=== PATIENT | female | born 1930 | race Hispanic/Latino ===

== ENCOUNTER 2018-06-27 14:42 | Emergency (ER) | payer MEDICARE, MEDICAID ==
[2018-06-27 14:42] VITALS: BMI 24.5
[2018-06-27 15:17] VITALS: BP 180/80; PULSE 100; RESP 18; TEMP 98; O2SAT 99
[2018-06-27] MEDS ORDERED: Lidocaine Hydrochloride 5 ML INJ ONE (15:36)
--- NOTE | 2018-06-27 15:40 | C.PDOC ---
History Of Present Illness 87 y/o female, with history of ESRD, hypertension, and hyperthyroidism, comes in to ED stating that she was on her way to dialysis when she banged her foot on the door of the vehicle and sustained a laceration on her left leg. Patient went to complete dialysis and decided to come here to ED to be evaluated. Patient has no other physical complaints. Time Seen by Provider: 06/27/18 15:26 Chief Complaint (Nursing): Abnormal Skin Integrity History Per: Patient History/Exam Limitations: no limitations Onset/Duration Of Symptoms: Hrs Current Symptoms Are (Timing): Still Present Past Medical History Reviewed: Historical Data, Nursing Documentation, Vital Signs Vital Signs: Last Vital Signs Temp 98.0 F 06/27/18 15:09 Pulse 100 H 06/27/18 15:09 Resp 18 06/27/18 15:09 BP 180/80 H 06/27/18 15:09 Pulse Ox 99 06/27/18 15:09 - Medical History PMH: HTN, Hyperthyroidism, End Stage Renal Disease - [facility] Procedures DIALYSIS ARTERIOVENOSTOM (03/12/13) HECTOR ASAEL DIALYSIS SHUNT (05/21/13) Family History: States: No Known Family Hx - Social History Hx Tobacco Use: No Hx Alcohol Use: No Hx Substance Use: No - Immunization History Hx Tetanus Toxoid Vaccination: No Hx Influenza Vaccination: No Hx Pneumococcal Vaccination: No Review Of Systems Except As Marked, All Systems Reviewed And Found Negative. Skin: Positive for: Other (Laceration on L leg) Physical Exam - Physical Exam Appears: Non-toxic, No Acute Distress Skin: Warm, Dry Head: Atraumatic, Normacephalic Eye(s): bilateral: Normal Inspection Oral Mucosa: Moist Neck: Supple Chest: Symmetrical Cardiovascular: Rhythm Regular, No Murmur Respiratory: Normal Breath Sounds, No Rales, No Rhonchi, No Wheezing Extremity: Other (AV fistula on L arm) Extremity: Left: Other (10cm curved laceration on left leg, no active bleeding) Neurological/Psych: Oriented x3, Normal Speech, Normal Motor, Normal Sensation ED Course And Treatment O2 Sat by Pulse Oximetry: 99 (RA) Pulse Ox Interpretation: Normal Procedure: Wound Repair - Time Performed Time Performed: 16:51 - Time Out Time Out: Side verified, Patient ID confirmed, Sterile procedures obs. - Procedure Procedure: Wound Repair: Laceration proximated and sutured - Performed by Performed by: Attending Physician - Indications Indication(s):: Laceration - Location Location:: Left, Leg Shape:: Other (Curve) Dimensions Length cm: 10 Dimensions width cm: 0.5 Depth:: Epidermis - Anesthetic Technique Anesthetic Technique: Topical Local/Regional Anesthetic:: Lidocaine 1% - Debris Debris:: None - Irrigated Irrigated with ml of normal saline: Normal saline, 10 ml - Complexity Complexity:: Simple (one layer) - Wound repair method Sutures:: # (14), Size (3 and 4), Type (Nylon), Technique (Simple, interrupted) - Patient tolerated procedure Patient Tolerated Procedure:: Well Disposition - Disposition Referrals: [facility] [Outside] Disposition: HOME/ ROUTINE Disposition Time: 17:25 Condition: IMPROVED Additional Instructions: Please follow up with the ed or your PCP for wound check in 48 hours and take bactrim as directed. Prescriptions: Acetaminophen [Tylenol] 650 mg PO Q4 #20 capsule Sulfamethoxazole/Trimethoprim [Bactrim Ds Tablet] 1 each PO Q12 #14 tablet Instructions: Wound Care (DC) Forms: [employer] (Greenlandic) - Clinical Impression Clinical Impression: Leg laceration - Scribe Statement The provider has reviewed the documentation as recorded by the Barb Mccall Provider Attestation: All medical record entries made by the Maryibkaylen were at my direction and personally dictated by me. I have reviewed the chart and agree that the record accurately reflects my personal performance of the history, physical exam, medical decision making, and the department course for this patient. I have also personally directed, reviewed, and agree with the discharge instructions and disposition.
[2018-06-27] MEDS ORDERED: Lidocaine Hydrochloride 10 ML INJ ONE (15:56)
[2018-06-27] MEDS ORDERED: Bacitracin 500 Units/gm Oint Foilpak UD ONE (16:45)
[2018-06-27] MEDS ORDERED: Tmp-Smz 800 mg-160 mg DS Tab PO ONE (16:59)
[2018-06-27] MEDS ORDERED: Tetanus/Diphtheria Toxoids 0.5 ml Syringe IM ONE (17:00)
[2018-06-27] MEDS ORDERED: Tmp-Smz 800 mg-160 mg DS Tab ONE (17:20)
[2018-06-27] MEDS ORDERED: Tdap Vaccine 0.5 ml Vial (10-64 yrs) IM ONE (17:21)
== END 2018-06-27 17:24 | disposition home or self-care (01) ==
LOC: C.ER 14:42
DX: S81.812A Laceration without foreign body, left lower leg, initial encounter (principal); W22.8XXA Striking against or struck by other objects, initial encounter; I12.0 Hypertensive chronic kidney disease with stage 5 chronic kidney disease or end stage renal disease; N18.6 End stage renal disease; Z99.2 Dependence on renal dialysis; Z23 Encounter for immunization

== ENCOUNTER 2018-06-29 14:33 | Emergency (ER) | payer MEDICARE, MEDICAID ==
[2018-06-29 14:40] VITALS: BMI 24.7
[2018-06-29 14:45] VITALS: BP 173/83; PULSE 92; RESP 17; TEMP 97.5; O2SAT 100
--- NOTE | 2018-06-29 14:49 | C.PDOC ---
History Of Present Illness 87 y/o female pt presents to the ER for wound check. Pt was here x2 days ago for a laceration repair of her right lower anterior leg. Pt denies fever, chills, nausea, vomiting, change in sensation and weakness. Patient is compliant with antibiotics prescription that was given. Time Seen by Provider: 06/29/18 14:47 Chief Complaint (Nursing): Wound Check History Per: Patient History/Exam Limitations: no limitations Onset/Duration Of Symptoms: Days Ago (x2) Current Symptoms Are (Timing): Still Present Location Of Injury: Right: Leg (low anterior) Past Medical History Reviewed: Historical Data, Nursing Documentation, Vital Signs Vital Signs: Last Vital Signs Temp 97.5 F L 06/29/18 14:40 Pulse 92 H 06/29/18 14:40 Resp 17 06/29/18 14:40 BP 173/83 H 06/29/18 14:40 Pulse Ox 100 06/29/18 14:40 - Medical History PMH: HTN, Hyperthyroidism, End Stage Renal Disease, Chronic Kidney Disease - [facility] Procedures DIALYSIS ARTERIOVENOSTOM (03/12/13) HECTOR ASAEL DIALYSIS SHUNT (05/21/13) Family History: States: Unknown Family Hx - Social History Hx Tobacco Use: No Hx Alcohol Use: No Hx Substance Use: No - Immunization History Hx Tetanus Toxoid Vaccination: Yes (06/27/2018) Hx Influenza Vaccination: No (ALLERGY) Hx Pneumococcal Vaccination: No Review Of Systems Except As Marked, All Systems Reviewed And Found Negative. Constitutional: Positive for: Other (wound check of right lower anterior leg ). Negative for: Fever, Chills Gastrointestinal: Negative for: Nausea, Vomiting Neurological: Negative for: Weakness, Other (changes in sensation ) Physical Exam - Physical Exam Appears: Non-toxic, No Acute Distress Skin: Warm, Dry Head: Normacephalic Eye(s): bilateral: Normal Inspection, EOMI Extremity: Normal ROM, No Tenderness, No Pedal Edema, No Calf Tenderness, No Deformity, No Swelling, Other (healed wound, slight oozing of blood on right lower leg ) Pulses: Right Dorsalis Pedis: Normal Neurological/Psych: Oriented x3, Normal Speech, Normal Cognition, Normal Motor, Normal Sensation ED Course And Treatment O2 Sat by Pulse Oximetry: 100 (RA) Pulse Ox Interpretation: Normal Progress Note: Plans: Surgery seal was placed on laceration repair. Reassess: Patient is resting comfortably. Patient is instructed to f/u and have her suture removed in 12 days. Disposition - Disposition Referrals: Amrit Nielson MD [Staff Provider] - Disposition: HOME/ ROUTINE Disposition Time: 14:55 Condition: STABLE Additional Instructions: Follow up with PMD within 1-2 days. Return to ED if feel worse. Suture removal in 12 days. 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 - Scribe Statement The provider has reviewed the documentation as recorded by the Barb Quiñonez Do All medical record entries made by the Scribe were at my direction and personally dictated by me. I have reviewed the chart and agree that the record accurately reflects my personal performance of the history, physical exam, medical decision making, and the department course for this patient. I have also personally directed, reviewed, and agree with the discharge instructions and d isposition.
== END 2018-06-29 15:09 | disposition home or self-care (01) ==
LOC: C.ER 14:33
DX: S81.812D Laceration without foreign body, left lower leg, subsequent encounter (principal); W22.8XXD Striking against or struck by other objects, subsequent encounter

== ENCOUNTER 2018-11-06 09:31 | Inpatient (IN) | payer MEDICARE, MEDICAID ==
[2018-11-06 09:31] VITALS: BMI 24.7
--- NOTE | 2018-11-06 09:52 | C.PDOC ---
Time Seen by Provider: 11/06/18 09:43 Chief Complaint (Nursing): Dizziness/Lightheaded Past Medical History Vital Signs: Last Vital Signs Temp 97.4 F L 11/06/18 09:45 Pulse 95 H 11/06/18 09:45 Resp 17 11/06/18 09:45 BP 165/82 H 11/06/18 09:45 Pulse Ox 99 11/06/18 09:45 Primary Care Provider: Amrit Nielson - Medical History PMH: HTN, Hyperthyroidism, End Stage Renal Disease, Chronic Kidney Disease - [facility] Procedures DIALYSIS ARTERIOVENOSTOM (03/12/13) HECTOR ASAEL DIALYSIS SHUNT (05/21/13) Family History: States: Unknown Family Hx - Social History Hx Tobacco Use: No Hx Alcohol Use: No Hx Substance Use: No - Immunization History Hx Tetanus Toxoid Vaccination: Yes (06/27/2018) Hx Influenza Vaccination: No (ALLERGY) Hx Pneumococcal Vaccination: Yes ED Course And Treatment O2 Sat by Pulse Oximetry: 99 Disposition - Disposition
--- NOTE | 2018-11-06 10:09 | C.PDOC ---
History Of Present Illness 88 year old female presents to ED s/p fall that occurred at 1630 yesterday. On 11/05 patient complained of back pain. Patient states she was sitting on the edge of the bed removing clothing and states "I just fell over" and landed back on the floor. Patient states that she was unable to get herself off the floor. Patient states "I was yelling for help" and her neighbor and super both heard her and called the EMS. Patient complaints of left upper and lower back pain from "laying on the floor." She denies taking any blood thinners. 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 Pimentel. Patient is status post hemodyalisis 11/05. Patient denies chest pain, headache, nausea, vomiting, abdominal pain, or extremity pain, head injury, or loss of consciousness. SP FALL 1630 11/05 CO BACK PAIN. PS SITTING ON EDGE OF BED REMOVING CLOTHING "AND I JUST FELL OVER" LANDED ON BACK ON FLOOR. DENIES HEAD INJURY, LOC. PS UNABLE TO GET SELF OFF OF FLOOR, "I WAS YELLING FOR HELP" NEIGHBOR AND SUPER HEARD PT AND CALLED EMS. CO L UPPER AND LOWER BACK PAIN "FROM LAYING ON THE FLOOR". SP ROUTINE HD 11/05, DENIES CP, [place], [place], ABD PAIN OR EXT PAIN. WALKS W CANE. DENIES BLOOD THINNER USE. EXAM NONTOXIC NAD HEENT ATRAUM NECK SUPPLE NONTEND CHEST WALL ATRAUM CV RRR ABD SOFT NT ND NO R/G ATRAUM BACK SEVERE KYPHOSIS, NO FOCAL SPINAL TEND OR DEFORM. +DIFFUSE TEND L UPPER BACK/LOWER BACK. NO SWELL SKIN +NONBLANCHING ERYTHEMA L UPPER BACK, INTACT. NO BRUISING. NEURO NO FOCAL DEF AO3 EXT AROM WO DIFF ATRAUM NONTEND REMAINDER NEG NEPHRO DR CONLEY PMD DR PIMENTEL - [facility] Time Seen by Provider: 11/06/18 09:43 History Per: Patient History/Exam Limitations: no limitations Onset/Duration Of Symptoms: Days (1) - Fall Fall:Prior To Injury: Lost Balance Past Medical History Reviewed: Historical Data, Nursing Documentation, Vital Signs Vital Signs: Last Vital Signs Temp 97.4 F L 11/06/18 09:45 Pulse 95 H 11/06/18 09:45 Resp 17 05/07/19 09:45 BP 165/82 H 11/06/18 09:45 Pulse Ox 99 11/06/18 09:52 Primary Care Provider: Amrit Pimentel - Medical History PMH: HTN, Hyperthyroidism, End Stage Renal Disease, Chronic Kidney Disease Surgical History: No Surg Hx - [facility] Procedures DIALYSIS ARTERIOVENOSTOM (03/12/13) HECTOR ASAEL DIALYSIS SHUNT (05/21/13) Family History: States: Unknown Family Hx - Social History Hx Tobacco Use: No Hx Alcohol Use: No Hx Substance Use: No - Immunization History Hx Tetanus Toxoid Vaccination: Yes (06/27/2018) Hx Influenza Vaccination: No (ALLERGY) Hx Pneumococcal Vaccination: Yes Review Of Systems Except As Marked, All Systems Reviewed And Found Negative. Musculoskeletal: Positive for: Back Pain Physical Exam - Physical Exam Appears: Non-toxic, No Acute Distress Skin: Normal Color, Warm, Dry, No Ecchymosis, Other (+ non-blanching erythema to the left upper back, intact) Head: Atraumatic, Normacephalic Eye(s): bilateral: Normal Inspection, PERRL, EOMI Neck: Normal ROM, No Midline Cervical Tenderness, No Paracervical Tenderness, Supple Chest: Symmetrical, No Deformity, No Tenderness Cardiovascular: Rhythm Regular, No Murmur Respiratory: No Accessory Muscle Use, No Rales, No Rhonchi, No Wheezing, Other (NARD) Gastrointestinal/Abdominal: Soft, No Tenderness, No Distention, No Guarding, No Rebound Back: No Vertebral Tenderness (deformity), Paraspinal Tenderness (left upper back/lower back, no swelling), Other (Severe kyphosis) Extremity: Capillary Refill (<2 seconds) Extremity: Bilateral: Atraumatic, Normal Color And Temperature, Normal ROM Pulses: Left Radial: Normal, Right Radial: Normal Neurological/Psych: Oriented x3, Normal Speech, Normal Cognition, Normal Motor, Normal Sensation ED Course And Treatment - Laboratory Results Result Diagrams: 11/06/18 10:19 11/06/18 10:19 ECG: Interpreted By Me, Viewed By Me ECG Rhythm: Sinus Rhythm Interpretation Of ECG: QTc 517. Rate From EC O2 Sat by Pulse Oximetry: 99 (in RA) Pulse Ox Interpretation: Normal - Radiology CXR: Interpreted by Me, Viewed By Me CXR Interpretation: Yes: No Acute Disease Nexus Criteria: Negative - Other Rad pelvis x-ray X-Ray: Interpreted by Me, Viewed By Me Interpretation: Normal - CT Scan/US Head CT Other Rad Studies (CT/US): Read By Radiologist CT/US Interpretation: IMPRESSION: Moderate to severe nonspecific white matter changes. Generalized atrophy. Thoracic Spine CT Other Rad Studies (CT/US): Read By Radiologist CT/US Interpretation: IMPRESSION: Prominent kyphotic deformity of the thoracic spine is appreciate without severe fracture identified. Minimal anterior wedge compression fractures may affect T1, T2 and T3 as well as T5 and these would be indeterminate in age. Consider follow-up MRI for added characterization. No significant bony central canal or neural foraminal stenosis appreciated throughout the thoracic spine. Small hiatal hernia. Distal esophageal thickening difficult to exclude. Consider upper endoscopy. Prior cholecystectomy evident. Multiple small lucencies are seen in the liver. Consider follow-up abdomen ultrasound Lumbar Spine CT Other Rad Studies (CT/US): Read By Radiologist CT/US Interpretation: IMPRESSION: No acute fracture identified. Grade 2 degenerative spondylolisthesis at L5-S1 is identified due to bilateral L5 spondylolysis with lung elongation of the central canal and both the elongation as well as moderate to severe narrowing of the bilateral neural foramina. Dextroscoliotic lumbar spinal deformity. Diffuse osteopenia suggests osteoporosis. Multilevel facet arthropathy appreciated diffusely. Progress Note: Head CT, Lumbar spine CT, Thoracic spine CT, EKG, CXR, and pelvis X-ray ordered for patient. CMP, CPK, and glucose POC ordered for patient. Discussed case with Dr. Villalta at 1145. is aware of ER findings and patient does not require emergent dialysis. Patient cleared for discharge and to continue schedule for outpatient dialysis. Progress - Re-Evaluation Re-evaluation Note: 11/06/18 12:57 SP AMBUL TRIAL W WALKER BY PT: STILL UNSTEADY. 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 WILL ADMIT 11/06/18 13:00 D/W DR Eladio HERNANDEZ C/F PMD WILL ADMIT - Data Reviewed Data Reviewed: Lab, Diagnostic imaging, EKG, Old records Disposition Counseled Patient/Family Regarding: Studies Performed, Diagnosis - Disposition Disposition: HOSPITALIZED Disposition Time: 13:00 Condition: STABLE Forms: [employer] ([place]ic) - POA Present On Arrival: Falls Or Trauma - Clinical Impression Clinical Impression: Back contusion, Difficulty walking, ESRD (end stage renal disease) on dialysis - Scribe Statement The provider has reviewed the documentation as recorded by the Scribe (Negra Hwang) All medical record entries made by the Scribe were at my direction and personally dictated by me. I have reviewed the chart and agree that the record accurately reflects my personal performance of the history, physical exam, medical decision making, and the department course for this patient. I have also personally directed, reviewed, and agree with the discharge instructions and disposition.
[2018-11-06 10:30] LABS: BASO # 0.1 K/uL (0.0-0.2); BASO % 0.7 % (0.0-2.0); LYMPH # 0.4 K/uL (1.0-4.3); LYMPH % 3.5 % (20.0-40.0); MEAN CELL VOLUME 86.2 fL (81.0-99.0); MEAN CORPUSCULAR HEMOGLOBIN 27.7 pg (27.0-31.0); MEAN CORPUSCULAR HGB CONC 32.1 g/dL (33.0-37.0); MEAN PLATELET VOLUME 8.5 fL (7.2-11.7); MONO # 0.6 K/uL (0.0-0.8); NEUT % 90.8 % (50.0-75.0); PLATELET COUNT 210 K/uL (130-400); RBC 5.77 Mil/uL (3.80-5.20); RED CELL DISTRIBUTION WIDTH 16.3 % (11.5-14.5)
[2018-11-06 10:31] LABS: WHITE BLOOD COUNT 12.1 K/uL (4.8-10.8)
[2018-11-06 10:34] LABS: ALB/GLOB RATIO 1.2 (1.0-2.1); ALBUMIN 4.6 g/dL (3.5-5.0); CALCIUM 9.7 mg/dl (8.6-10.4)
[2018-11-06 10:45] LABS: INR 1.1; PROTHROMBIN TIME 11.8 SECONDS (9.7-12.2)
--- NOTE | 2018-11-06 11:03 | RAD ---
Date of service: 11/06/2018 PROCEDURE: Radiographs of the pelvis. HISTORY: TRAUMA COMPARISON: None. TECHNIQUE: 1 view obtained. FINDINGS: BONES: Pelvic Bones: Unremarkable. Hips: Grossly unremarkable. JOINTS: Sacroiliac Joints: Unremarkable. Pubic Symphysis: Unremarkable. OTHER FINDINGS: None. IMPRESSION: Unremarkable radiographs of the pelvis.
[2018-11-06 11:06] LABS: EOSINOPHIL 1 % (0-4); LYMPHOCYTE 4 % (20-40); MONOCYTE 6 % (0-10); NEUTROPHIL 89 % (50-75); TOTAL CELLS COUNTED 100
[2018-11-06 11:07] LABS: ANISOCYTOSIS SLIGHT; PLATELET ESTIMATE NORMAL (NORMAL)
--- NOTE | 2018-11-06 11:35 | CT ---
Date of service: 11/06/2018 PROCEDURE: CT HEAD WITHOUT CONTRAST. HISTORY: TRAUMA COMPARISON: None available TECHNIQUE: Axial computed tomography images were obtained through the head/brain without intravenous contrast. Radiation dose: Total exam DLP = 928.55 mGy-cm. This CT exam was performed using one or more of the following dose reduction techniques: Automated exposure control, adjustment of the mA and/or kV according to patient size, and/or use of iterative reconstruction technique. FINDINGS: HEMORRHAGE: No intracranial hemorrhage. BRAIN: Diffuse atrophy with prominence of the ventricles and sulci noted. No mass effect or edema. Intracranial atherosclerosis. Bilateral basal ganglia calcifications. Scattered periventricular and subcortical white matter hypodensities, which are nonspecific, but often seen with chronic microvascular ischemic disease. Please note that MRI with diffusion imaging is more sensitive in the detection of acute ischemic event. VENTRICLES: No hydrocephalus. CALVARIUM: Unremarkable. PARANASAL SINUSES: Unremarkable as visualized. No significant inflammatory changes. MASTOID AIR CELLS: Unremarkable as visualized. No inflammatory changes. OTHER FINDINGS: None. IMPRESSION: Moderate to severe nonspecific white matter changes. Generalized atrophy.
--- NOTE | 2018-11-06 11:56 | CT ---
Date of service: 11/06/2018 PROCEDURE: CT Thoracic Spine without contrast HISTORY: TRAUMA COMPARISON: None available. TECHNIQUE: Axial computed tomography images were obtained of the thoracic spine without intravenous contrast. Coronal and sagittal reformatted images were created and reviewed. Radiation dose: Total exam DLP = 463.67 mGy-cm. This CT exam was performed using one or more of the following dose reduction techniques: Automated exposure control, adjustment of the mA and/or kV according to patient size, and/or use of iterative reconstruction technique. FINDINGS: VERTEBRAE: Although there is a hyper kyphotic deformity of the thoracic spine, there only minimal potential anterior wedging of the T1, T2, T3 and T5 vertebral bodies on a minimal basis. Remaining vertebral bodies are grossly normal in height. Diffuse osteopenia suggests osteoporosis. No destructive bony lesion is identified. Mild multilevel spondylosis appreciated anteriorly on a diffuse basis. No spondylolisthesis appreciated. DISCS/SPINAL CANAL/NEURAL FORAMINA: Within the limits of the CT technique, no disc herniation seen. No bony central canal or neural foraminal stenosis.. PARASPINAL SOFT TISSUES: Unremarkable. OTHER FINDINGS: There is a small hiatal hernia identified with thickening of the distal esophagus not completely excluded. Prior cholecystectomy. Multiple tiny lucencies are seen at the visualized liver. IMPRESSION: Prominent kyphotic deformity of the thoracic spine is appreciate without severe fracture identified. Minimal anterior wedge compression fractures may affect T1, T2 and T3 as well as T5 and these would be indeterminate in age. Consider follow-up MRI for added characterization. No significant bony central canal or neural foraminal stenosis appreciated throughout the thoracic spine. Small hiatal hernia. Distal esophageal thickening difficult to exclude. Consider upper endoscopy. Prior cholecystectomy evident. Multiple small lucencies are seen in the liver. Consider follow-up abdomen ultrasound
--- NOTE | 2018-11-06 12:09 | CT ---
Date of service: 11/06/2018 PROCEDURE: CT Lumbar Spine without contrast HISTORY: TRAUMA COMPARISON: None available. TECHNIQUE: Axial computed tomography images were obtained of the lumbar spine without the use of intravenous contrast. Coronal and sagittal reformatted images were created and reviewed. Radiation dose: Total exam DLP = 475.74 mGy-cm. This CT exam was performed using one or more of the following dose reduction techniques: Automated exposure control, adjustment of the mA and/or kV according to patient size, and/or use of iterative reconstruction technique. FINDINGS: VERTEBRAE: Diffuse osteopenia suggests osteoporosis. There is a dextroscoliotic lumbar spinal deformity with apparent counter clockwise rotatory component present. No definite vertebral body fracture is identified. No focal destructive bony lesion is identified. Multilevel facet joint arthropathy is identified. Bilateral spondylolysis is identified at L5 with concomitant grade 2 spondylolisthesis of L5 anterior to S1. DISCS/SPINAL CANAL/NEURAL FORAMINA: Despite multilevel facet joint arthropathy throughout the lumbar spine, the bony central canal appears widely patent diffusely, including at the spondylolisthesis L1-2: No significant central canal or neural foraminal stenosis. Mild bilateral facet arthropathy. L2-3: No significant central canal or neural foraminal stenosis. Mild bilateral facet arthropathy. L3-4: No significant central canal or neural foraminal stenosis. Mild bilateral facet arthropathy. L4-5: There is a widely patent central canal without stenosis. No neural foraminal stenosis bilaterally. Degenerative joint arthropathy appears mild. L5-S1: Despite grade 2 spondylolisthesis at this level, there is no significant central canal stenosis though the central canal is somewhat elongated in the anteroposterior dimension due to the spondylolisthesis. Elongation and moderate to severe narrowing of the bilateral neural foramina are identified, right greater than left. PARASPINAL SOFT TISSUES: Extensive abdominal aortic atherosclerosis without definitive aneurysm at visualized segment. Prominent atrophy of the right psoas muscle is appreciated which is likely on the basis of scoliosis. OTHER FINDINGS: None. IMPRESSION: No acute fracture identified. Grade 2 degenerative spondylolisthesis at L5-S1 is identified due to bilateral L5 spondylolysis with lung elongation of the central canal and both the elongation as well as moderate to severe narrowing of the bilateral neural foramina. Dextroscoliotic lumbar spinal deformity. Diffuse osteopenia suggests osteoporosis. Multilevel facet arthropathy appreciated diffusely.
--- NOTE | 2018-11-06 12:14 | RAD ---
Date of service: 11/06/2018 PROCEDURE: CHEST RADIOGRAPH, 1 VIEW HISTORY: TRAUMA COMPARISON: 09/09/2015 FINDINGS: LUNGS: Clear. PLEURA: No pneumothorax or pleural fluid seen. CARDIOVASCULAR: No aortic atherosclerotic calcification present. Normal. OSSEOUS STRUCTURES: No significant abnormalities. VISUALIZED UPPER ABDOMEN: Normal. OTHER FINDINGS: None. IMPRESSION: No active disease.
[2018-11-06] MEDS ORDERED: Lidocaine 5% Patch TD STA (13:01)
[2018-11-06] MEDS ORDERED: Lidocaine 5% Patch TD ONE (13:19)
--- NOTE | 2018-11-06 18:30 | CP.PCM.HP ---
History of Present Illness - History of Present Illness History of Present Illness: 48-year-old female presents to the emergency room department status post fall at 400 at home from the age of the bed while removing the clots and landed on the back on her back complain of back pain on a 1-10 scale over 5/10 after fall patient claims that she was unable to get herself up so she yelled for the help eventually unable to heartbeat and EMS was called patient denies having chest pain or dizziness prior to the fall patient is claiming that she is feeling weak Patient has multiple medical problem patient is on dialysis patient gets dialysis regularly denies nausea denies any vomiting denies any headache denies any palpitations patient denies any pain on any other part of the body eventually patient is hospitalized for further work-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 On arrival vital signs blood pressure 165/82 pulse ox 99 respiration 17 pulse rate 95 temperature 97.4 PMH: HTN, Hyperthyroidism, End Stage Renal Disease, Chronic Kidney Disease Surgical History: No Surg Hx - [facility] Procedures DIALYSIS ARTERIOVENOSTOM (03/12/13) HECTOR [facility]SA[facility] DIALYSIS SHUNT (05/21/13) Family History: States: Unknown Family Hx - Social History Hx Tobacco Use: No Hx Alcohol Use: No Hx Substance Use: No - Immunization History Hx Tetanus Toxoid Vaccination: Yes (06/27/2018) Hx Influenza Vaccination: No (ALLERGY) Hx Pneumococcal Vaccination: Yes Review Of Systems Except As Marked, All Systems Reviewed And Found Negative. 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 hemodialysis m-w-f - PSYCHIATRIC Hx Substance Use: No - SURGICAL HISTORY Hx Surgeries: Yes (SEE COMMENT) Hx Cataract Extraction: Yes Other/Comment: left av shunt for h/d - ANESTHESIA Hx Anesthesia: Yes Hx Anesthesia Reactions: No Meds Allergies/Adverse Reactions: Allergies Allergy/AdvReac Type Severity Reaction Status Date / Time amlodipine Allergy ITCHING Verified 11/06/18 09:52 clarithromycin Allergy Verified 11/06/18 09:52 EGG Allergy Verified 11/06/18 09:52 labetalol Allergy Verified 11/06/18 09:52 lincomycin Allergy Verified 11/06/18 09:52 Penicillins Allergy Verified 11/06/18 09:52 prednisone Allergy Verified 11/06/18 09:52 vancomycin Allergy Verified 11/06/18 09:52 Physical Exam - Constitutional Appears: Well - Head Exam Head Exam: ATRAUMATIC, NORMAL INSPECTION, NORMOCEPHALIC - Eye Exam Eye Exam: EOMI, Normal appearance, PERRL Pupil Exam: NORMAL ACCOMODATION, PERRL - ENT Exam ENT Exam: Mucous Membranes Moist, Normal Exam - Neck Exam Neck exam: Positive for: Normal Inspection - Respiratory Exam Respiratory Exam: Decreased Breath Sounds - Cardiovascular Exam Cardiovascular Exam: REGULAR RHYTHM, +S1, +S2 - GI/Abdominal Exam GI & Abdominal Exam: Diminished Bowel Sounds, Soft - Rectal Exam Rectal Exam: Deferred - Neurological Exam Neurological exam: Oriented x3 Results - Vital Signs Recent Vital Signs: Last Vital Signs Temp 97.5 F L 11/06/18 13:43 Pulse 84 11/06/18 18:28 Resp 15 11/06/18 18:28 BP 140/71 11/06/18 18:28 Pulse Ox 97 11/06/18 18:28 - Labs Result Diagrams: 11/06/18 10:19 11/06/18 10:19 Labs: Laboratory Results - last 24 hr 11/06/18 11/06/18 11/06/18 10:08 10:19 10:19 WBC 12.1 H D RBC 5.77 H Hgb 16.0 D Hct 49.7 H MCV 86.2 MCH 27.7 MCHC 32.1 L RDW 16.3 H Plt Count 210 MPV 8.5 Neut % (Auto) 90.8 H Lymph % (Auto) 3.5 L Cherry % (Auto) 5.0 Eos % (Auto) 0.0 Baso % (Auto) 0.7 Neut # (Auto) 11.0 H Lymph # (Auto) 0.4 L Cherry # (Auto) 0.6 Eos # (Auto) 0.0 Baso # (Auto) 0.1 Neutrophils % (Manual) 89 H Lymphocytes % (Manual) 4 L Monocytes % (Manual) 6 Eosinophils % (Manual) 1 Platelet Estimate Normal Anisocytosis (manual) Slight PT 11.8 INR 1.1 APTT 35.0 H Sodium Potassium Chloride Carbon Dioxide Anion Gap BUN Creatinine Est GFR ( Amer) Est GFR (Non-Af Amer) POC Glucose (mg/dL) 149 H Random Glucose Calcium Total Bilirubin AST ALT Alkaline Phosphatase Total Creatine Kinase Total Protein Albumin Globulin Albumin/Globulin Ratio 11/06/18 10:19 WBC RBC Hgb Hct MCV MCH MCHC RDW Plt Count MPV Neut % (Auto) Lymph % (Auto) Cherry % (Auto) Eos % (Auto) Baso % (Auto) Neut # (Auto) Lymph # (Auto) Cherry # (Auto) Eos # (Auto) Baso # (Auto) Neutrophils % (Manual) Lymphocytes % (Manual) Monocytes % (Manual) Eosinophils % (Manual) Platelet Estimate Anisocytosis (manual) PT INR APTT Sodium 140 Potassium 4.3 Chloride 96 L Carbon Dioxide 30 Anion Gap 18 BUN 42 H Creatinine 6.8 H Est GFR ( Amer) 7 Est GFR (Non-Af Amer) 6 POC Glucose (mg/dL) Random Glucose 137 H D Calcium 9.7 Total Bilirubin 0.7 AST 67 H ALT 29 Alkaline Phosphatase 144 H Total Creatine Kinase 2130 H Total Protein 8.4 H Albumin 4.6 Globulin 3.8 Albumin/Globulin Ratio 1.2 Assessment & Plan (1) Back contusion Status: Acute (2) Difficulty walking Status: Acute (3) ESRD (end stage renal disease) on dialysis Status: Acute (4) Bronchitis Status: Acute (5) Cough Status: Acute (6) Leg laceration Status: Acute (7) Visit for wound check Status: Acute - Assessment and Plan (Free Text) Plan: plan WBC is 12.1 Hemoglobin hematocrit 16 and 49 hemodialysis patient'snon/v/c/d BUN and creatinine 42 and 6.8 respectively Sugar 134 Potassium 4.3 Sodium 140 EKG normal sinus rhythm with a QTC 5 1784/min nonspecific ST-T changes with a pulse ox 99/min chest x-ray no acute disease patient had a CT scan of the lumbar spine which has multi-facet arthropathy no fracture grade II degenerative spondylolisthesis at L5-S1 CT scan of the thoracic spine prominent kyphotic deformity of the thoracic spine without any severe fracture notified Head CT moderate to severe nonspecific white matter changes PT OT Neurology consultations Hemodialysis as scheduled Follow-up with the nephrology PT or OT Protonix Will hold the Lovenox Levoxyl Tylenol Crestor Renvela Vitamin B12 Monitor CBC CMP plan of care d.w pt mod ot severe severity oc care renal diet
[2018-11-07] MEDS: Levothyroxine 88 MCG TAB PO SCH (06:20)
[2018-11-07] MEDS: Multivitamin Vitamin B Complex (Nephro-Vite) Tab PO SCH (10:11)
--- NOTE | 2018-11-07 20:09 | CP.PCM.PN ---
Subjective - Date & Time of Evaluation Date of Evaluation: 11/07/18 Time of Evaluation: 07:40 - Subjective Subjective: patient examined today no nausea no vomiting no dizziness no diarrhea no fever no shortness of breath Objective - Vital Signs/Intake and Output Vital Signs (last 24 hours): Temp Pulse Resp BP Pulse Ox 98 F 96 H 18 83/50 L 98 11/07/18 19:50 11/07/18 19:50 11/07/18 19:50 11/07/18 19:50 11/07/18 19:50 Intake and Output: 11/07/18 11/08/18 18:59 06:59 Intake Total 780 Balance 780 - Medications Medications: Current Medications Acetaminophen (Tylenol 325mg Tab) 650 mg PO Q6 PRN PRN Reason: Headache Last Admin: 11/07/18 13:39 Dose: 650 mg Levothyroxine Sodium (Synthroid) 88 mcg PO DAILY@0630 [facility] Last Admin: 11/07/18 06:20 Dose: 88 mcg Pneumococcal Polyvalent Vaccine (Pneumovax 23 Vaccine) 0.5 ml IM .ONCE ONE Stop: 11/08/18 10:01 Rosuvastatin Calcium (Crestor) 5 mg PO HS [facility] Last Admin: 11/06/18 21:30 Dose: 5 mg Sevelamer Carbonate (Renvela) 800 mg PO TID [facility] Last Admin: 11/07/18 13:24 Dose: 800 mg Vitamin B Complex/Vit C/Folic Acid (Nephro-Dileep) 1 tab PO DAILY [facility] Last Admin: 11/07/18 10:11 Dose: 1 tab - Labs Labs: 11/06/18 10:19 11/06/18 10:19 PT 11.8 SECONDS (9.7-12.2) 11/06/18 10:19 INR 1.1 11/06/18 10:19 APTT 35.0 SECONDS (21-34) H 11/06/18 10:19 - Constitutional Appears: Well - Head Exam Head Exam: ATRAUMATIC, NORMAL INSPECTION, NORMOCEPHALIC - Eye Exam Eye Exam: EOMI, Normal appearance, PERRL Pupil Exam: NORMAL ACCOMODATION, PERRL - ENT Exam ENT Exam: Mucous Membranes Moist, Normal Exam - Neck Exam Neck Exam: Full ROM, Normal Inspection. absent: Lymphadenopathy - Respiratory Exam Respiratory Exam: Decreased Breath Sounds - Cardiovascular Exam Cardiovascular Exam: REGULAR RHYTHM, +S1, +S2 - GI/Abdominal Exam GI & Abdominal Exam: Soft, Diminished Bowel Sounds - Rectal Exam Rectal Exam: Deferred - Neurological Exam Neurological Exam: Oriented x3 Assessment and Plan - Assessment and Plan (Free Text) Plan: crestor nephro-dileep renvela synthroid tylenold plan discussed with patient and family moderate complexity of care medications reviewed labs and vitals reviewed CT status post renal Renal diet Discharge planning patient needs subacute rehab All the reports of the CAT scan and MRI conveyed to the patient's Pelvis x-ray no fracture Hemodialysis orders as per the kidney doctor Patient patient encouraged out of bed to the chair hd Moderate to high complexity of care. Plan of care discussed with patient &/or family & staff. Medications reviewed and reconciled. Labs reviewed. Vitals reviewed.
--- NOTE | 2018-11-08 01:20 | CARD ---
APPROVED REPORT Date of service: 11/06/2018 EKG Measurement Heart [id number] <Conclusion> Normal sinus rhythm Prolonged QT Abnormal ECG
[2018-11-08] MEDS: Levothyroxine 88 MCG TAB PO SCH (05:45)
[2018-11-08] MEDS: Multivitamin Vitamin B Complex (Nephro-Vite) Tab PO SCH (09:47)
[2018-11-08] MEDS ORDERED: Pneumococcal 23-Valent Vaccine IM ONE (10:00)
--- NOTE | 2018-11-08 13:42 | CP.PCM.CON ---
<Selvin Renteria - Last Filed: 11/08/18 15:43> History of Present Illness - History of Present Illness History of Present Illness: PGY-1 Neurology consult for Dr Dean Patient is an 88 year old female with pmhx of HTN, hyperthyroid, ESRD on HD MWF, CKD, neurology consulted for status post fall, which occurred on 11/05, as per patient, she was coming back from dialysis to home when she slipped from bed into floor and was not able to get up, patient admits to lower back pain. Patient ambulates, as per chart review patient uses cane to walk. Denies weakness, dizziness, headaches, vision changes. Patient is ambulating with walker during hospital stay. Pmhx: as stated above Shx: denies All: multiple, see records sochx/fhx: denies alcohol, tobacco or drug use. Past Patient History - Infectious Disease Hx of Infectious Diseases: None - Past Social History Smoking Status: Never Smoked - CARDIAC Hx Hypertension: Yes - HEENT Hx HEENT Problems: Yes Hx Cataracts: Yes - RENAL Hx Renal Failure: Yes (CKD ON HD MWF) - ENDOCRINE/METABOLIC Hx Hyperthyroidism: Yes - MUSCULOSKELETAL/RHEUMATOLOGICAL Hx Arthritis: Yes (BACK) - GENITOURINARY/GYNECOLOGICAL Hx Genitourinary Disorders: Yes Other/Comment: pt is still able to urinate.. hemodialysis m-w-f - PSYCHIATRIC Hx Substance Use: No - SURGICAL HISTORY Hx Surgeries: Yes (SEE COMMENT) Hx Cataract Extraction: Yes Other/Comment: left av shunt for h/d - ANESTHESIA Hx Anesthesia: Yes Hx Anesthesia Reactions: No Meds Allergies/Adverse Reactions: Allergies Allergy/AdvReac Type Severity Reaction Status Date / Time amlodipine Allergy ITCHING Verified 11/06/18 09:52 clarithromycin Allergy Verified 11/06/18 09:52 EGG Allergy Verified 11/06/18 09:52 labetalol Allergy Verified 11/06/18 09:52 lincomycin Allergy Verified 11/06/18 09:52 Penicillins Allergy Verified 11/06/18 09:52 prednisone Allergy Verified 11/06/18 09:52 vancomycin Allergy Verified 11/06/18 09:52 - Medications Medications: Current Medications Acetaminophen (Tylenol 325mg Tab) 650 mg PO Q6 PRN PRN Reason: Headache Last Admin: 11/07/18 13:39 Dose: 650 mg Levothyroxine Sodium (Synthroid) 88 mcg PO DAILY@0630 [facility] Last Admin: 11/08/18 05:45 Dose: 88 mcg Rosuvastatin Calcium (Crestor) 5 mg PO HS [facility] Last Admin: 11/07/18 21:22 Dose: 5 mg Sevelamer Carbonate (Renvela) 800 mg PO TID [facility] Last Admin: 11/08/18 13:16 Dose: 800 mg Vitamin B Complex/Vit C/Folic Acid (Nephro-Rin) 1 tab PO DAILY [facility] Last Admin: 11/08/18 09:47 Dose: 1 tab Physical Exam - Constitutional Appears: Non-toxic, No Acute Distress - Head Exam Head Exam: ATRAUMATIC, NORMOCEPHALIC - Eye Exam Eye Exam: EOMI, Normal appearance - Respiratory Exam Respiratory Exam: NORMAL BREATHING PATTERN - Neurological Exam Neurological exam: Alert, CN II-XII Intact, Oriented x3 Additional comments: negative cogwheel rigidity upper extremities no shuffling gait no essential or intentional tremors no difficulties rising from sitting to standing position no difficulties initiating walking movements. no postural instability - Expanded Neurological Exam Expanded Speech: Fluid Speech Cranial nerves: EOM's Intact: Normal, Facial Palsey w/Forehead Movement: Normal, Facial Palsey w/o Forehead Movement: Normal Neuro motor strength exam: Left Upper Extremity: 5, Right Upper Extremity: 5, Left Lower Extremity: 5, Right Lower Extremity: 5 Coma Scale Eye Opening: SPONTANEOUS Coma Scale Motor Response: OBEYS COMMANDS Coma Scale Verbal: Oriented Coma Scale Total: 15 - Psychiatric Exam Psychiatric exam: Normal Affect, Normal Mood Results - Vital Signs Recent Vital Signs: Last Vital Signs Temp 97.8 F 11/08/18 08:02 Pulse 75 11/08/18 08:02 Resp 20 11/08/18 08:02 BP 134/72 11/08/18 08:02 Pulse Ox 95 11/08/18 08:02 - Labs Result Diagrams: 11/06/18 10:19 11/06/18 10:19 Labs: Laboratory Results - last 24 hr 11/07/18 11/07/18 11/08/18 16:25 21:28 02:16 POC Glucose (mg/dL) 81 119 H 97 11/08/18 11/08/18 07:35 11:23 POC Glucose (mg/dL) 110 81 Assessment & Plan - Assessment and Plan (Free Text) Plan: 88 year old female with pmhx of HTN, hyperthyroid, ESRD on HD MWF, s/p fall most likely secondary to post dialysis from recent dialysis, negative neurological examination, no signs of Parkison's disease. CT head shows moderate to severe nonspecific white matter changes, generalized atrophy. 1. Recommend physical therapy 2. continue medical management as per primary and nephro 3. Neuro will sign off, reconsult as needed Plan discuss with Dr Jermaine Renteria, PGY-1 - Date & Time Date: 11/08/18 Time: 01:00 <Wendy Dean - Last Filed: 11/12/18 21:54> Results - Vital Signs Recent Vital Signs: Last Vital Signs Temp 97.2 F L 11/12/18 12:35 Pulse 74 11/12/18 12:35 Resp 18 11/12/18 12:35 BP 113/49 L 11/12/18 12:35 Pulse Ox 97 11/12/18 12:35 - Labs Result Diagrams: 11/12/18 10:28 11/12/18 10:28 Labs: Laboratory Results - last 24 hr 11/12/18 11/12/18 11/12/18 02:16 07:10 10:28 WBC 5.0 RBC 4.44 Hgb 12.5 Hct 38.3 MCV 86.1 MCH 28.2 MCHC 32.7 L RDW 16.3 H Plt Count 174 MPV 8.7 Sodium Potassium Chloride Carbon Dioxide Anion Gap BUN Creatinine Est GFR ( Amer) Est GFR (Non-Af Amer) POC Glucose (mg/dL) 121 H 99 Random Glucose Calcium 11/12/18 11/12/18 10:28 11:08 WBC RBC Hgb Hct MCV MCH MCHC RDW Plt Count MPV Sodium 133 Potassium 3.9 Chloride 94 L Carbon Dioxide 27 Anion Gap 15 BUN 50 H Creatinine 5.3 H Est GFR ( Amer) 9 Est GFR (Non-Af Amer) 8 POC Glucose (mg/dL) 103 Random Glucose 125 H Calcium 8.8 Assessment & Plan - Assessment and Plan (Free Text) Plan: All medical record entries made by the Resident were at my direction and personally dictated by me. I have reviewed the chart and agree that the record accurately reflects my personal performance of the history, physical exam, medical decision making, and the department course for this patient. I have also personally directed, reviewed, and agree with the discharge instructions and disposition. 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 Neurology exam does not indicate stroke. Dr. Dean Neurology
--- NOTE | 2018-11-08 13:58 | CP.PCM.PN ---
Subjective - Date & Time of Evaluation Date of Evaluation: 11/08/18 Time of Evaluation: 07:20 - Subjective Subjective: patient examined today no nausea no vomiting no dizziness no no diarrhea no shortness of breath no fever neighbor came ot visit pt who called 911 pt sitingin bed pt agreed [facility] Objective - Vital Signs/Intake and Output Vital Signs (last 24 hours): Temp Pulse Resp BP Pulse Ox 97.8 F 75 20 134/72 95 11/08/18 08:02 11/08/18 08:02 11/08/18 08:02 11/08/18 08:02 11/08/18 08:02 Intake and Output: 11/08/18 11/08/18 06:59 18:59 Intake Total 600 Balance 600 - Medications Medications: Current Medications Acetaminophen (Tylenol 325mg Tab) 650 mg PO Q6 PRN PRN Reason: Headache Last Admin: 11/07/18 13:39 Dose: 650 mg Levothyroxine Sodium (Synthroid) 88 mcg PO DAILY@0630 [facility] Last Admin: 11/08/18 05:45 Dose: 88 mcg Rosuvastatin Calcium (Crestor) 5 mg PO HS [facility] Last Admin: 11/07/18 21:22 Dose: 5 mg Sevelamer Carbonate (Renvela) 800 mg PO TID [facility] Last Admin: 11/08/18 13:16 Dose: 800 mg Vitamin B Complex/Vit C/Folic Acid (Nephro-Dileep) 1 tab PO DAILY [facility] Last Admin: 11/08/18 09:47 Dose: 1 tab - Labs Labs: 11/06/18 10:19 11/06/18 10:19 PT 11.8 SECONDS (9.7-12.2) 11/06/18 10:19 INR 1.1 11/06/18 10:19 APTT 35.0 SECONDS (21-34) H 11/06/18 10:19 - Constitutional Appears: Well - Head Exam Head Exam: ATRAUMATIC, NORMAL INSPECTION, NORMOCEPHALIC - Eye Exam Eye Exam: EOMI, Normal appearance, PERRL Pupil Exam: NORMAL ACCOMODATION, PERRL - ENT Exam ENT Exam: Mucous Membranes Moist, Normal Exam - Neck Exam Neck Exam: Full ROM, Normal Inspection. absent: Lymphadenopathy - Respiratory Exam Respiratory Exam: Decreased Breath Sounds - Cardiovascular Exam Cardiovascular Exam: REGULAR RHYTHM, +S1, +S2 - GI/Abdominal Exam GI & Abdominal Exam: Soft, Diminished Bowel Sounds - Rectal Exam Rectal Exam: Deferred - Neurological Exam Neurological Exam: Oriented x3 Assessment and Plan (1) Back contusion Status: Acute (2) Difficulty walking Status: Acute (3) ESRD (end stage renal disease) on dialysis Status: Acute (4) Bronchitis Status: Acute (5) Cough Status: Acute (6) Leg laceration Status: Acute (7) Visit for wound check Status: Acute - Assessment and Plan (Free Text) Plan: crestor nephro-dileep renvela synthroid tylenold plan discussed with patient and family moderate complexity of care medications reviewed labs and vitals reviewed Patient has a niece who lives in the [place] and that is the next of kin Moderate to high complexity of care. Plan of care discussed with patient &/or family & staff. Report discussed with the patient pt ot
--- NOTE | 2018-11-08 15:45 | CP.PCM.PN ---
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 Hb okay >10, defer JOSE JUAN for now BP controlled without meds Glycemic control Dialysis consistent diet Further work up/management as per primary team Dose meds/antibiotics (if needed) for ESRD status. Avoid fleets enema/magnesium based laxatives. fall precautions, PT Thanks for allowing me to participate in care of your patient. Will follow patient with you. Please call if any Qs. d/w team Dr Kp [place] Office: [phone] Chief Complaint; fall reason for consult: ESRD HPI: Pt is a 88 F with hx of ESRD on hemodialysis (MWF) via AVF, last dialysis mon chronic anemia, hyperphosphatemia, secondary hyperparathyroidism, hypothyroidism hyperlipidemia presented with complaints of nfall at home and admitted for further management. c/o back pain. no SOB or bleeding. difficulty ambulation ROS: Feels pain in back Denies chest pain, palpitation, shortness of breath, leg swelling. rest all other neg Physical Examination: General Appearance: Comfortable, in no acute respiratory distress, co-operative . Vitals reviewed and noted as below Head; Atraumatic, normocephalic ENT: no ulcers no thrush. Tongue is midline. Oropharynx: no rash EYES: Pupils are equal, round and reactive to light accommodation. Eye muscles and extraocular movement intact. Sclera is anicteric. Neck; supple no lymphadenopathy, no thyromegaly or bruit Lungs: Normal respiratory rate/effort. Breath sounds bilateral equal and b/l clear Heart: Normal rate. s1s2 normal. No rub or gallop. Extremities: no edema. No varicose veins. Neurological: Patient is alert, awake and oriented to person, place and time. No focal deficit. Strength bilateral appropriate and equal. Skin: Warm and dry. Normal turgor. No rash. Palpitation: Normal elasticity for age Abdomen: Abdomen is soft. Bowel sounds +. There is no abdominal tenderness, no guarding/rigidity or organomegaly Psych: normal insight and normal affect/mood MSK: no joint tenderness or swelling. Digits and nails normal, no deformity : kidney or bladder not palpable Access: AV access with thrill and bruit Labs/imaging reviewed. Past medical history, past surgical history, family history, social history, allergy reviewed and noted as below Family Hx: no hx of CKD. Non contributory Objective - Vital Signs/Intake and Output Vital Signs (last 24 hours): Temp Pulse Resp BP Pulse Ox 97.8 F 75 20 134/72 95 11/08/18 08:02 11/08/18 08:02 11/08/18 08:02 11/08/18 08:02 11/08/18 08:02 Intake and Output: 11/08/18 11/08/18 06:59 18:59 Intake Total 600 350 Balance 600 350 - Medications Medications: Current Medications Acetaminophen (Tylenol 325mg Tab) 650 mg PO Q6 PRN PRN Reason: Headache Last Admin: 11/07/18 13:39 Dose: 650 mg Levothyroxine Sodium (Synthroid) 88 mcg PO DAILY@0630 [facility] Last Admin: 11/08/18 05:45 Dose: 88 mcg Rosuvastatin Calcium (Crestor) 5 mg PO HS [facility] Last Admin: 11/07/18 21:22 Dose: 5 mg Sevelamer Carbonate (Renvela) 800 mg PO TID [facility] Last Admin: 11/08/18 13:16 Dose: 800 mg Vitamin B Complex/Vit C/Folic Acid (Nephro-Rin) 1 tab PO DAILY [facility] Last Admin: 11/08/18 09:47 Dose: 1 tab - Labs Labs: 11/06/18 10:19 11/06/18 10: PT 11.8 SECONDS (9.7-12.2) 11/06/18 10: INR 1.1 11/06/18 10: APTT 35.0 SECONDS (21-34) H 11/06/18 10:19
--- NOTE | 2018-11-08 15:45 | CP.PCM.CON ---
History of Present Illness - History of Present Illness History of Present Illness: Nephrology Consultation: Assessment: Stable Fall at home mild rhabdomyolysis Hypertensive Chronic Kidney Disease (I12.0) End stage renal disease (N18.6) dependence on hemodialysis (Z99.2) (MWF) via AV access Secondary Hyperparathyroidism (E21.1), HTN (I12.0) Plan: Will plan for HD as MWF schedule Continue with Nephrovite 1 tab/day. Hb okay >10, defer JOSE JUAN for now BP controlled without meds Glycemic control Dialysis consistent diet Further work up/management as per primary team Dose meds/antibiotics (if needed) for ESRD status. Avoid fleets enema/magnesium based laxatives. fall precautions, PT Thanks for allowing me to participate in care of your patient. Will follow patient with you. Please call if any Qs. d/w team Dr Kp Villalta Office: [phone] Chief Complaint; fall reason for consult: ESRD HPI: Pt is a 88 F with hx of ESRD on hemodialysis (MWF) via AVF, last dialysis mon chronic anemia, hyperphosphatemia, secondary hyperparathyroidism, hypothyroidism hyperlipidemia presented with complaints of nfall at home and admitted for further management. c/o back pain. no SOB or bleeding. difficulty ambulation ROS: Feels pain in back Denies chest pain, palpitation, shortness of breath, leg swelling. rest all other neg Physical Examination: General Appearance: Comfortable, in no acute respiratory distress, co-operative . Vitals reviewed and noted as below Head; Atraumatic, normocephalic ENT: no ulcers no thrush. Tongue is midline. Oropharynx: no rash EYES: Pupils are equal, round and reactive to light accommodation. Eye muscles and extraocular movement intact. Sclera is anicteric. Neck; supple no lymphadenopathy, no thyromegaly or bruit Lungs: Normal respiratory rate/effort. Breath sounds bilateral equal and b/l clear Heart: Normal rate. s1s2 normal. No rub or gallop. Extremities: no edema. No varicose veins. Neurological: Patient is alert, awake and oriented to person, place and time. No focal deficit. Strength bilateral appropriate and equal. Skin: Warm and dry. Normal turgor. No rash. Palpitation: Normal elasticity for age Abdomen: Abdomen is soft. Bowel sounds +. There is no abdominal tenderness, no guarding/rigidity or organomegaly Psych: normal insight and normal affect/mood MSK: no joint tenderness or swelling. Digits and nails normal, no deformity : kidney or bladder not palpable Access: AV access with thrill and bruit Labs/imaging reviewed. Past medical history, past surgical history, family history, social history, allergy reviewed and noted as below Family Hx: no hx of CKD. Non contributory Past Patient History - Infectious Disease Hx of Infectious Diseases: None - Past Social History Smoking Status: Never Smoked - CARDIAC Hx Hypertension: Yes - HEENT Hx HEENT Problems: Yes Hx Cataracts: Yes - RENAL Hx Renal Failure: Yes (CKD ON HD MWF) - ENDOCRINE/METABOLIC Hx Hyperthyroidism: Yes - MUSCULOSKELETAL/RHEUMATOLOGICAL Hx Arthritis: Yes (BACK) - GENITOURINARY/GYNECOLOGICAL Hx Genitourinary Disorders: Yes Other/Comment: pt is still able to urinate.. hemodialysis m-w-f - PSYCHIATRIC Hx Substance Use: No - SURGICAL HISTORY Hx Surgeries: Yes (SEE COMMENT) Hx Cataract Extraction: Yes Other/Comment: left av shunt for h/d - ANESTHESIA Hx Anesthesia: Yes Hx Anesthesia Reactions: No Meds Allergies/Adverse Reactions: Allergies Allergy/AdvReac Type Severity Reaction Status Date / Time amlodipine Allergy ITCHING Verified 11/06/18 09:52 clarithromycin Allergy Verified 11/06/18 09:52 EGG Allergy Verified 11/06/18 09:52 labetalol Allergy Verified 11/06/18 09:52 lincomycin Allergy Verified 11/06/18 09:52 Penicillins Allergy Verified 11/06/18 09:52 prednisone Allergy Verified 11/06/18 09:52 vancomycin Allergy Verified 11/06/18 09:52 - Medications Medications: Current Medications Levothyroxine Sodium (Synthroid) 88 mcg PO DAILY@0630 [facility] Last Admin: 11/07/18 06:20 Dose: 88 mcg Rosuvastatin Calcium (Crestor) 5 mg PO HS [facility] Last Admin: 11/06/18 21:30 Dose: 5 mg Sevelamer Carbonate (Renvela) 800 mg PO TID [facility] Last Admin: 11/07/18 10:11 Dose: 800 mg Vitamin B Complex/Vit C/Folic Acid (Nephro-Rin) 1 tab PO DAILY [facility] Last Admin: 11/07/18 10:11 Dose: 1 tab Results - Vital Signs Recent Vital Signs: Last Vital Signs Temp 97.9 F 11/07/18 08:36 Pulse 79 11/07/18 08:36 Resp 20 11/07/18 08:36 BP 149/71 11/07/18 10:00 Pulse Ox 95 11/07/18 08:36 - Labs Result Diagrams: 11/06/18 10:19 11/06/18 10:19 Labs: Laboratory Results - last 24 hr 11/06/18 11/07/18 11/07/18 21:18 02:24 07:31 POC Glucose (mg/dL) 114 H 96 91
[2018-11-09] MEDS: Levothyroxine 88 MCG TAB PO SCH (06:30)
[2018-11-09] MEDS: Multivitamin Vitamin B Complex (Nephro-Vite) Tab PO SCH (09:02)
[2018-11-09 10:49] LABS: BASO # 0.1 K/uL (0.0-0.2); BASO % 1.2 % (0.0-2.0); EOS # 0.1 K/uL (0.0-0.7); LYMPH # 0.7 K/uL (1.0-4.3); LYMPH % 12.3 % (20.0-40.0); MEAN CELL VOLUME 86.6 fL (81.0-99.0); MEAN CORPUSCULAR HEMOGLOBIN 28.5 pg (27.0-31.0); MEAN PLATELET VOLUME 9.1 fL (7.2-11.7); MONO # 0.3 K/uL (0.0-0.8); MONO % 6.1 % (0.0-10.0); NEUT # 4.6 K/uL (1.8-7.0); NEUT % 79.4 % (50.0-75.0); NRBC % 0.1 % (0.0-2.0); RBC 4.64 Mil/uL (3.80-5.20); RED CELL DISTRIBUTION WIDTH 16.5 % (11.5-14.5)
[2018-11-09 10:51] LABS: HEMOGLOBIN 13.2 g/dL (11.0-16.0); WHITE BLOOD COUNT 5.8 K/uL (4.8-10.8)
[2018-11-09 11:00] LABS: CALCIUM 8.8 mg/dl (8.6-10.4)
--- NOTE | 2018-11-09 13:15 | CP.PCM.PN ---
Subjective - Date & Time of Evaluation Date of Evaluation: 11/09/18 Time of Evaluation: 13:13 - Subjective Subjective: Nephrology Consultation Note: Assessment: Stable Fall at home mild rhabdomyolysis Hypertensive Chronic Kidney Disease (I12.0) End stage renal disease (N18.6) dependence on hemodialysis (Z99.2) (MWF) via AV access Secondary Hyperparathyroidism (E21.1), HTN (I12.0) Plan: Will plan for HD as MWF schedule Continue with Nephrovite 1 tab/day. Hb okay >10, defer JOSE JUAN for now BP controlled without meds Glycemic control Dialysis consistent diet Further work up/management as per primary team Dose meds/antibiotics (if needed) for ESRD status. Avoid fleets enema/magnesium based laxatives. fall precautions, PT Thanks for allowing me to participate in care of your patient. Will follow patient with you. Please call if any Qs. d/w team Dr Kp Villalta Office: [phone] Chief Complaint; fall reason for consult: ESRD HPI: Pt is a 88 F with hx of ESRD on hemodialysis (MWF) via AVF, last dialysis m on chronic anemia, hyperphosphatemia, secondary hyperparathyroidism, hypothyroidism hyperlipidemia presented with complaints of nfall at home and admitted for further management. c/o back pain. no SOB or bleeding. difficulty ambulation ROS: Feels pain in back but better Denies chest pain, palpitation, shortness of breath, leg swelling. rest all other neg Physical Examination: seen on HD General Appearance: Comfortable, in no acute respiratory distress, co-operative . Vitals reviewed and noted as below Head; Atraumatic, normocephalic ENT: no ulcers no thrush. Tongue is midline. Oropharynx: no rash EYES: Pupils are equal, round and reactive to light accommodation. Eye muscles and extraocular movement intact. Sclera is anicteric. Neck; supple no lymphadenopathy, no thyromegaly or bruit Lungs: Normal respiratory rate/effort. Breath sounds bilateral equal and b/l clear Heart: Normal rate. s1s2 normal. No rub or gallop. Extremities: no edema. No varicose veins. Neurological: Patient is alert, awake and oriented to person, place and time. No focal deficit. Strength bilateral appropriate and equal. Skin: Warm and dry. Normal turgor. No rash. Palpitation: Normal elasticity for a ge Abdomen: Abdomen is soft. Bowel sounds +. There is no abdominal tenderness, no guarding/rigidity or organomegaly Psych: normal insight and normal affect/mood MSK: no joint tenderness or swelling. Digits and nails normal, no deformity : kidney or bladder not palpable Access: AV access with thrill and bruit Labs/imaging reviewed. Past medical history, past surgical history, family history, social history, allergy reviewed and noted as below Family Hx: no hx of CKD. Non contributory Objective - Vital Signs/Intake and Output Vital Signs (last 24 hours): Temp Pulse Resp BP Pulse Ox 97.3 F L 84 16 96/56 L 98 11/09/18 12:35 11/09/18 09:35 11/09/18 12:35 11/09/18 12:35 11/09/18 12:35 Intake and Output: 11/09/18 11/09/18 06:59 18:59 Intake Total 300 Balance 300 - Medications Medications: Current Medications Acetaminophen (Tylenol 325mg Tab) 650 mg PO Q6 PRN PRN Reason: Headache Last Admin: 11/09/18 00:46 Dose: 650 mg Levothyroxine Sodium (Synthroid) 88 mcg PO DAILY@0630 [facility] Last Admin: 11/09/18 06:30 Dose: 88 mcg Rosuvastatin Calcium (Crestor) 5 mg PO HS [facility] Last Admin: 11/08/18 22:21 Dose: 5 mg Sevelamer Carbonate (Renvela) 800 mg PO TID [facility] Last Admin: 11/09/18 09:03 Dose: Not Given Vitamin B Complex/Vit C/Folic Acid (Nephro-Rni) 1 tab PO DAILY [facility] Last Admin: 11/09/18 09:02 Dose: Not Given - Labs Labs: 11/09/18 10:40 11/09/18 10:40 PT 11.8 SECONDS (9.7-12.2) 11/06/18 10: INR 1.1 11/06/18 10: APTT 35.0 SECONDS (21-34) H 11/06/18 10:19
--- NOTE | 2018-11-09 19:27 | CP.PCM.PN ---
Subjective - Date & Time of Evaluation Date of Evaluation: 11/09/18 - Subjective Subjective: patient examined today no nausea no vomiting no dizziness no diarrhea no fever no shortness of breath Objective - Vital Signs/Intake and Output Vital Signs (last 24 hours): Temp Pulse Resp BP Pulse Ox 97.9 F 88 20 120/70 97 11/09/18 15:00 11/09/18 15:00 11/09/18 15:00 11/09/18 15:00 11/09/18 15:00 - Medications Medications: Current Medications Acetaminophen (Tylenol 325mg Tab) 650 mg PO Q6 PRN PRN Reason: Headache Last Admin: 11/09/18 00:46 Dose: 650 mg Levothyroxine Sodium (Synthroid) 88 mcg PO DAILY@0630 [facility] Last Admin: 11/09/18 06:30 Dose: 88 mcg Rosuvastatin Calcium (Crestor) 5 mg PO HS [facility] Last Admin: 11/08/18 22:21 Dose: 5 mg Sevelamer Carbonate (Renvela) 800 mg PO TID [facility] Last Admin: 11/09/18 17:07 Dose: 800 mg Vitamin B Complex/Vit C/Folic Acid (Nephro-Dileep) 1 tab PO DAILY [facility] Last Admin: 11/09/18 09:02 Dose: Not Given - Labs Labs: 11/09/18 10:40 11/09/18 10:40 PT 11.8 SECONDS (9.7-12.2) 11/06/18 10:19 INR 1.1 11/06/18 10:19 APTT 35.0 SECONDS (21-34) H 11/06/18 10:19 - Constitutional Appears: Well - Head Exam Head Exam: ATRAUMATIC, NORMAL INSPECTION, NORMOCEPHALIC - Eye Exam Eye Exam: EOMI, Normal appearance, PERRL Pupil Exam: NORMAL ACCOMODATION, PERRL - ENT Exam ENT Exam: Mucous Membranes Moist, Normal Exam - Neck Exam Neck Exam: Full ROM, Normal Inspection. absent: Lymphadenopathy - Respiratory Exam Respiratory Exam: Decreased Breath Sounds - Cardiovascular Exam Cardiovascular Exam: REGULAR RHYTHM, +S1, +S2 - GI/Abdominal Exam GI & Abdominal Exam: Soft, Diminished Bowel Sounds - Rectal Exam Rectal Exam: Deferred - Neurological Exam Neurological Exam: Oriented x3 Assessment and Plan (1) Back contusion Status: Acute (2) Difficulty walking Status: Acute (3) ESRD (end stage renal disease) on dialysis Status: Acute (4) Bronchitis Status: Acute (5) Cough Status: Acute (6) Leg laceration Status: Acute (7) Visit for wound check Status: Acute - Assessment and Plan (Free Text) Plan: crestor nephro-dileep renvela synthroid tylenold plan discussed with patient and family moderate complexity of care medications reviewed labs and vitals reviewed
[2018-11-10] MEDS: Levothyroxine 88 MCG TAB PO SCH (05:35)
[2018-11-10] MEDS: Multivitamin Vitamin B Complex (Nephro-Vite) Tab PO SCH (09:14)
--- NOTE | 2018-11-10 15:22 | CP.PCM.PN ---
Subjective - Date & Time of Evaluation Date of Evaluation: 11/10/18 - Subjective Subjective: patient examined today no nausea no vomiting no dizziness no diarrhea no shortness of breath no fever Objective - Vital Signs/Intake and Output Vital Signs (last 24 hours): Temp Pulse Resp BP Pulse Ox 98.2 F 82 20 150/82 98 11/10/18 08:00 11/10/18 08:00 11/10/18 08:00 11/10/18 08:00 11/10/18 08:00 Intake and Output: 11/10/18 11/10/18 06:59 18:59 Intake Total 250 300 Balance 250 300 - Medications Medications: Current Medications Acetaminophen (Tylenol 325mg Tab) 650 mg PO Q6 PRN PRN Reason: Headache Last Admin: 11/09/18 00:46 Dose: 650 mg Levothyroxine Sodium (Synthroid) 88 mcg PO DAILY@0630 [facility] Last Admin: 11/10/18 05:35 Dose: 88 mcg Rosuvastatin Calcium (Crestor) 5 mg PO HS [facility] Last Admin: 11/08/18 22:21 Dose: 5 mg Sevelamer Carbonate (Renvela) 800 mg PO TID [facility] Last Admin: 11/10/18 13:02 Dose: 800 mg Vitamin B Complex/Vit C/Folic Acid (Nephro-Dileep) 1 tab PO DAILY [facility] Last Admin: 11/10/18 09:14 Dose: 1 tab - Labs Labs: 11/09/18 10:40 11/09/18 10:40 PT 11.8 SECONDS (9.7-12.2) 11/06/18 10:19 INR 1.1 11/06/18 10:19 APTT 35.0 SECONDS (21-34) H 11/06/18 10:19 - Constitutional Appears: Well - Head Exam Head Exam: ATRAUMATIC, NORMAL INSPECTION, NORMOCEPHALIC - Eye Exam Eye Exam: EOMI, Normal appearance, PERRL Pupil Exam: NORMAL ACCOMODATION, PERRL - ENT Exam ENT Exam: Mucous Membranes Moist, Normal Exam - Neck Exam Neck Exam: Full ROM, Normal Inspection. absent: Lymphadenopathy - Respiratory Exam Respiratory Exam: Decreased Breath Sounds - Cardiovascular Exam Cardiovascular Exam: REGULAR RHYTHM, +S1, +S2 - GI/Abdominal Exam GI & Abdominal Exam: Soft, Diminished Bowel Sounds - Rectal Exam Rectal Exam: Deferred - Neurological Exam Neurological Exam: Oriented x3 Assessment and Plan (1) Back contusion Status: Acute (2) Difficulty walking Status: Acute (3) ESRD (end stage renal disease) on dialysis Status: Acute (4) Bronchitis Status: Acute (5) Cough Status: Acute (6) Leg laceration Status: Acute (7) Visit for wound check Status: Acute - Assessment and Plan (Free Text) Plan: plan discussed with patient moderate complexity of care medications reviewed labs reviewed vitals reviewed crestor nephro-dileep renvela synthroid tylenold
[2018-11-11] MEDS: Levothyroxine 88 MCG TAB PO SCH (05:45)
[2018-11-11] MEDS: Multivitamin Vitamin B Complex (Nephro-Vite) Tab PO SCH (10:16)
--- NOTE | 2018-11-11 14:21 | CP.PCM.PN ---
Subjective - Date & Time of Evaluation Date of Evaluation: 11/11/18 - Subjective Subjective: patient examined today no nausea no vomiting no dizziness no diarrhea no fever no shortness of breath Objective - Vital Signs/Intake and Output Vital Signs (last 24 hours): Temp Pulse Resp BP Pulse Ox 97.8 F 79 20 177/83 H 98 11/11/18 07:30 11/11/18 07:30 11/11/18 07:30 11/11/18 07:30 11/11/18 07:30 Intake and Output: 11/11/18 11/11/18 06:59 18:59 Intake Total 650 Balance 650 - Medications Medications: Current Medications Acetaminophen (Tylenol 325mg Tab) 650 mg PO Q6 PRN PRN Reason: Headache Last Admin: 11/09/18 00:46 Dose: 650 mg Levothyroxine Sodium (Synthroid) 88 mcg PO DAILY@0630 [facility] Last Admin: 11/11/18 05:45 Dose: 88 mcg Rosuvastatin Calcium (Crestor) 5 mg PO HS [facility] Last Admin: 11/08/18 22:21 Dose: 5 mg Sevelamer Carbonate (Renvela) 800 mg PO TID [facility] Last Admin: 11/11/18 10:16 Dose: 800 mg Vitamin B Complex/Vit C/Folic Acid (Nephro-Dileep) 1 tab PO DAILY [facility] Last Admin: 11/11/18 10:16 Dose: 1 tab - Labs Labs: 11/09/18 10:40 11/09/18 10:40 PT 11.8 SECONDS (9.7-12.2) 11/06/18 10:19 INR 1.1 11/06/18 10:19 APTT 35.0 SECONDS (21-34) H 11/06/18 10:19 - Constitutional Appears: Well - Head Exam Head Exam: ATRAUMATIC, NORMAL INSPECTION, NORMOCEPHALIC - Eye Exam Eye Exam: EOMI, Normal appearance, PERRL Pupil Exam: NORMAL ACCOMODATION, PERRL - ENT Exam ENT Exam: Mucous Membranes Moist, Normal Exam - Neck Exam Neck Exam: Full ROM, Normal Inspection. absent: Lymphadenopathy - Respiratory Exam Respiratory Exam: Decreased Breath Sounds - Cardiovascular Exam Cardiovascular Exam: REGULAR RHYTHM, +S1, +S2 - GI/Abdominal Exam GI & Abdominal Exam: Soft, Diminished Bowel Sounds - Rectal Exam Rectal Exam: Deferred - Neurological Exam Neurological Exam: Oriented x3 Assessment and Plan (1) Back contusion Status: Acute (2) Difficulty walking Status: Acute (3) ESRD (end stage renal disease) on dialysis Status: Acute (4) Bronchitis Status: Acute (5) Cough Status: Acute (6) Leg laceration Status: Acute (7) Visit for wound check Status: Acute - Assessment and Plan (Free Text) Plan: medications reviewed crestor nephro-dileep renvela synthroid tylenold labs reviewed vitals reviewed plan discussed with patient moderate complexity of care
--- NOTE | 2018-11-11 16:53 | CP.PCM.PN ---
Subjective - Date & Time of Evaluation Date of Evaluation: 11/11/18 Time of Evaluation: 16:52 - Subjective Subjective: Nephrology Consultation Note: Assessment: Stable Fall at home mild rhabdomyolysis Hypertensive Chronic Kidney Disease (I12.0) End stage renal disease (N18.6) dependence on hemodialysis (Z99.2) (MWF) via AV access Secondary Hyperparathyroidism (E21.1), HTN (I12.0) Plan: Will plan for HD as MWF schedule anemia monitor epo as needed BP ok Glycemic control Dialysis consistent diet monitor phos levels Physical Examination: General Appearance: Comfortable, in no acute respiratory distress, co-operative . Vitals reviewed and noted as below Head; Atraumatic, normocephalic ENT: no ulcers EYES: Eye muscles and extraocular movement intact. Sclera is anicteric. Neck; supple no lymphadenopathy, no thyromegaly or bruit Lungs: Normal respiratory rate/effort. Breath sounds bilateral equal and b/l clear Heart: Normal rate. s1s2 normal. No rub or gallop. Extremities: no edema. No varicose veins. Neurological: Patient is alert, awake and oriented to person, place and time. Skin: Warm and dry. Normal turgor. No rash. Abdomen: Abdomen is soft. Bowel sounds +. There is no abdominal tenderness, no guarding/rigidity or organomegaly Psych: normal insight . Objective - Vital Signs/Intake and Output Vital Signs (last 24 hours): Temp Pulse Resp BP Pulse Ox 97.8 F 79 20 177/83 H 98 11/11/18 07:30 11/11/18 07:30 11/11/18 07:30 11/11/18 07:30 11/11/18 07:30 Intake and Output: 11/11/18 11/11/18 06:59 18:59 Intake Total 650 350 Balance 650 350 - Medications Medications: Current Medications Acetaminophen (Tylenol 325mg Tab) 650 mg PO Q6 PRN PRN Reason: Headache Last Admin: 11/09/18 00:46 Dose: 650 mg Levothyroxine Sodium (Synthroid) 88 mcg PO DAILY@0630 [facility] Last Admin: 11/11/18 05:45 Dose: 88 mcg Rosuvastatin Calcium (Crestor) 5 mg PO HS [facility] Last Admin: 11/08/18 22:21 Dose: 5 mg Sevelamer Carbonate (Renvela) 800 mg PO TID [facility] Last Admin: 11/11/18 14:28 Dose: 800 mg Vitamin B Complex/Vit C/Folic Acid (Nephro-Rin) 1 tab PO DAILY [facility] Last Admin: 11/11/18 10:16 Dose: 1 tab - Labs Labs: 11/09/18 10:40 11/09/18 10:40 PT 11.8 SECONDS (9.7-12.2) 11/06/18 10:19 INR 1.1 11/06/18 10:19 APTT 35.0 SECONDS (21-34) H 11/06/18 10:19
[2018-11-12] MEDS: Levothyroxine 88 MCG TAB PO SCH (06:00)
[2018-11-12] MEDS: Multivitamin Vitamin B Complex (Nephro-Vite) Tab PO SCH (09:49)
[2018-11-12 10:39] LABS: HEMOGLOBIN 12.5 g/dL (11.0-16.0); MEAN CELL VOLUME 86.1 fL (81.0-99.0); MEAN CORPUSCULAR HEMOGLOBIN 28.2 pg (27.0-31.0); MEAN CORPUSCULAR HGB CONC 32.7 g/dL (33.0-37.0); MEAN PLATELET VOLUME 8.7 fL (7.2-11.7); RBC 4.44 Mil/uL (3.80-5.20); RED CELL DISTRIBUTION WIDTH 16.3 % (11.5-14.5)
[2018-11-12 10:58] LABS: CALCIUM 8.8 mg/dl (8.6-10.4)
[2018-11-12 13:08] VITALS: BP 113/49; PULSE 74; RESP 18; TEMP 97.2; O2SAT 97
--- NOTE | 2018-11-12 14:16 | CP.PCM.PN ---
Subjective - Date & Time of Evaluation Date of Evaluation: 11/12/18 Time of Evaluation: 14:14 - Subjective Subjective: Nephrology Consultation Note: Assessment: Stable Fall at home mild rhabdomyolysis Hypertensive Chronic Kidney Disease (I12.0) End stage renal disease (N18.6) dependence on hemodialysis (Z99.2) (MWF) via AV access Secondary Hyperparathyroidism (E21.1), HTN (I12.0) Plan: Will plan for HD as MWF schedule Continue with Nephrovite 1 tab/day. Hb okay >10, defer JOSE JUAN for now BP controlled without meds Glycemic control Dialysis consistent diet Further work up/management as per primary team Dose meds/antibiotics (if needed) for ESRD status. Avoid fleets enema/magnesium based laxatives. fall precautions, PT pt for d/c to rehab. stable from renal perspective when planned Thanks for allowing me to participate in care of your patient. Will follow patient with you. Please call if any Qs. d/w team Dr Kp Villalta Office: [phone] Chief Complaint; fall reason for consult: ESRD HPI: Pt is a 88 F with hx of ESRD on hemodialysis (MWF) via AVF, last dialysis mon chronic anemia, hyperphosphatemia, secondary hyperparathyroidism, hypothyroidism hyperlipidemia presented with complaints of nfall at home and admitted for further management. c/o back pain. no SOB or bleeding. difficulty ambulation ROS: Feels pain in back but better Denies chest pain, palpitation, shortness of breath, leg swelling. rest all other neg Physical Examination: General Appearance: Comfortable, in no acute respiratory distress, co-operative . Vitals reviewed and noted as below Head; Atraumatic, normocephalic ENT: no ulcers no thrush. Tongue is midline. Oropharynx: no rash EYES: Pupils are equal, round and reactive to light accommodation. Eye muscles and extraocular movement intact. Sclera is anicteric. Neck; supple no lymphadenopathy, no thyromegaly or bruit Lungs: Normal respiratory rate/effort. Breath sounds bilateral equal and b/l clear Heart: Normal rate. s1s2 normal. No rub or gallop. Extremities: no edema. No varicose veins. Neurological: Patient is alert, awake and oriented to person, place and time. No focal deficit. Strength bilateral appropriate and equal. Skin: Warm and dry. Normal turgor. No rash. Palpitation: Normal elasticity for age Abdomen: Abdomen is soft. Bowel sounds +. There is no abdominal tenderness, no guarding/rigidity or organomegaly Psych: normal insight and normal affect/mood MSK: no joint tenderness or swelling. Digits and nails normal, no deformity : kidney or bladder not palpable Access: AV access with thrill and bruit Labs/imaging reviewed. Past medical history, past surgical history, family history, social history, allergy reviewed and noted as below Family Hx: no hx of CKD. Non contributory Objective - Vital Signs/Intake and Output Vital Signs (last 24 hours): Temp Pulse Resp BP Pulse Ox 97.2 F L 74 18 113/49 L 97 11/12/18 12:35 11/12/18 12:35 11/12/18 12:35 11/12/18 12:35 11/12/18 12:35 Intake and Output: 11/12/18 11/12/18 06:59 18:59 Intake Total 300 Balance 300 - Medications Medications: Current Medications Acetaminophen (Tylenol 325mg Tab) 650 mg PO Q6 PRN PRN Reason: Headache Last Admin: 11/09/18 00:46 Dose: 650 mg Hydralazine HCl (Apresoline) 25 mg PO Q4 PRN PRN Reason: Other Levothyroxine Sodium (Synthroid) 88 mcg PO DAILY@0630 [facility] Last Admin: 11/12/18 06:00 Dose: 88 mcg Rosuvastatin Calcium (Crestor) 5 mg PO HS [facility] Last Admin: 11/08/18 22:21 Dose: 5 mg Sevelamer Carbonate (Renvela) 800 mg PO TID [facility] Last Admin: 11/12/18 09:49 Dose: Not Given Vitamin B Complex/Vit C/Folic Acid (Nephro-Rin) 1 tab PO DAILY [facility] Last Admin: 11/12/18 09:49 Dose: Not Given - Labs Labs: 11/12/18 10:28 11/12/18 10:28 PT 11.8 SECONDS (9.7-12.2) 11/06/18 10:19 INR 1.1 11/06/18 10:19 APTT 35.0 SECONDS (21-34) H 11/06/18 10:19
--- NOTE | 2018-11-12 16:36 | CP.PCM.PN ---
Subjective - Date & Time of Evaluation Date of Evaluation: 11/12/18 Time of Evaluation: 08:00 - Subjective Subjective: patient examined today no nausea, no vomiting, no fever, no diarrhea, no dizziness, no shortness of breath Objective - Vital Signs/Intake and Output Vital Signs (last 24 hours): Temp Pulse Resp BP Pulse Ox 97.2 F L 74 18 113/49 L 97 11/12/18 12:35 11/12/18 12:35 11/12/18 12:35 11/12/18 12:35 11/12/18 12:35 Intake and Output: 11/12/18 11/12/18 06:59 18:59 Intake Total 300 480 Balance 300 480 - Medications Medications: Current Medications Acetaminophen (Tylenol 325mg Tab) 650 mg PO Q6 PRN PRN Reason: Headache Last Admin: 11/09/18 00:46 Dose: 650 mg Hydralazine HCl (Apresoline) 25 mg PO Q4 PRN PRN Reason: Other Levothyroxine Sodium (Synthroid) 88 mcg PO DAILY@0630 [facility] Last Admin: 11/12/18 06:00 Dose: 88 mcg Rosuvastatin Calcium (Crestor) 5 mg PO HS [facility] Last Admin: 11/08/18 22:21 Dose: 5 mg Sevelamer Carbonate (Renvela) 800 mg PO TID [facility] Last Admin: 11/12/18 14:49 Dose: 800 mg Vitamin B Complex/Vit C/Folic Acid (Nephro-Dileep) 1 tab PO DAILY [facility] Last Admin: 11/12/18 09:49 Dose: Not Given - Labs Labs: 11/12/18 10:28 11/12/18 10:28 PT 11.8 SECONDS (9.7-12.2) 11/06/18 10:19 INR 1.1 11/06/18 10:19 APTT 35.0 SECONDS (21-34) H 11/06/18 10:19 - Constitutional Appears: Well - Head Exam Head Exam: ATRAUMATIC, NORMAL INSPECTION, NORMOCEPHALIC - Eye Exam Eye Exam: EOMI, Normal appearance, PERRL Pupil Exam: NORMAL ACCOMODATION, PERRL - ENT Exam ENT Exam: Mucous Membranes Moist, Normal Exam - Neck Exam Neck Exam: Full ROM, Normal Inspection. absent: Lymphadenopathy - Respiratory Exam Respiratory Exam: Decreased Breath Sounds - Cardiovascular Exam Cardiovascular Exam: REGULAR RHYTHM, +S1, +S2 - GI/Abdominal Exam GI & Abdominal Exam: Soft, Diminished Bowel Sounds - Rectal Exam Rectal Exam: Deferred - Neurological Exam Neurological Exam: Oriented x3 Assessment and Plan (1) Back contusion Status: Acute (2) Difficulty walking Status: Acute (3) ESRD (end stage renal disease) on dialysis Status: Acute (4) Bronchitis Status: Acute (5) Cough Status: Acute (6) Leg laceration Status: Acute (7) Visit for wound check Status: Acute - Assessment and Plan (Free Text) Plan: Moderate complexity of care plan discussed with patient medications reviewed labs and vitals reviewed apresoline crestor nephro-dileep renvela synthroid tylenol
--- NOTE | 2018-11-12 22:00 | CP.PCM.DIS ---
Provider - Provider Date of Admission: 11/08/18 12:03 Attending physician: Isaiah Honeycutt MD Consults: 11/06/18 11:19 Physician Consult Stat Comment: *ALREADY CALLED Consulting Provider: Kp Villalta Consulting Physician: Kp Villalta Reason for Consult: ESRD 11/06/18 14:15 Physician Consult Routine Comment: *PMD REQUEST Consulting Provider: Buddy Morrell Consulting Physician: Buddy Morrell Reason for Consult: DIFF WALKING Additional Comments: *PMD REQUEST 11/06/18 21:16 Nursing Referral for Wound Care Routine Comment: Physician Instructions: Reason For Exam: new adm very dry skin on both legs and feet 11/08/18 09:06 Neurology Consult Routine Comment: Consulting Provider: Wendy Dean Consulting Physician: Wendy Dean Reason for Consult: s/p fall Time Spent in preparation of Discharge (in minutes): 30 Diagnosis - Discharge Diagnosis (1) Back contusion Status: Acute (2) Difficulty walking Status: Acute (3) ESRD (end stage renal disease) on dialysis Status: Acute (4) Bronchitis Status: Acute (5) Cough Status: Acute (6) Leg laceration Status: Acute (7) Visit for wound check Status: Acute Hospital Course - Lab Results Lab Results: Most Recent Lab Values WBC 5.0 K/uL (4.8-10.8) 11/12/18 10:28 RBC 4.44 Mil/uL (3.80-5.20) 11/12/18 10:28 Hgb 12.5 g/dL (11.0-16.0) 11/12/18 10:28 Hct 38.3 % (34.0-47.0) 11/12/18 10:28 MCV 86.1 fL (81.0-99.0) 11/12/18 10:28 MCH 28.2 pg (27.0-31.0) 11/12/18 10:28 MCHC 32.7 g/dL (33.0-37.0) L 11/12/18 10:28 RDW 16.3 % (11.5-14.5) H 11/12/18 10:28 Plt Count 174 K/uL (130-400) 11/12/18 10:28 MPV 8.7 fL (7.2-11.7) 11/12/18 10:28 Neut % (Auto) 79.4 % (50.0-75.0) H 11/09/18 10:40 Lymph % (Auto) 12.3 % (20.0-40.0) L 11/09/18 10:40 Bland % (Auto) 6.1 % (0.0-10.0) 11/09/18 10:40 Eos % (Auto) 1.0 % (0.0-4.0) 11/09/18 10:40 Baso % (Auto) 1.2 % (0.0-2.0) 11/09/18 10:40 Neut # (Auto) 4.6 K/uL (1.8-7.0) 11/09/18 10:40 Lymph # (Auto) 0.7 K/uL (1.0-4.3) L 11/09/18 10:40 Bland # (Auto) 0.3 K/uL (0.0-0.8) 11/09/18 10:40 Eos # (Auto) 0.1 K/uL (0.0-0.7) 11/09/18 10:40 Baso # (Auto) 0.1 K/uL (0.0-0.2) 11/09/18 10:40 Neutrophils % (Manual) 89 % (50-75) H 11/06/18 10:19 Lymphocytes % (Manual) 4 % (20-40) L 11/06/18 10:19 Monocytes % (Manual) 6 % (0-10) 11/06/18 10:19 Eosinophils % (Manual) 1 % (0-4) 11/06/18 10:19 Platelet Estimate Normal (NORMAL) 11/06/18 10:19 Anisocytosis (manual) Slight 11/06/18 10:19 PT 11.8 SECONDS (9.7-12.2) 11/06/18 10:19 INR 1.1 11/06/18 10:19 APTT 35.0 SECONDS (21-34) H 11/06/18 10:19 Sodium 133 mmol/L (132-148) 11/12/18 10:28 Potassium 3.9 mmol/L (3.6-5.2) 11/12/18 10:28 Chloride 94 mmol/L (98-107) L 11/12/18 10:28 Carbon Dioxide 27 mmol/L (22-30) 11/12/18 10:28 Anion Gap 15 (10-20) 11/12/18 10:28 BUN 50 mg/dL (7-17) H 11/12/18 10:28 Creatinine 5.3 mg/dL (0.7-1.2) H 11/12/18 10:28 Est GFR ( Amer) 9 11/12/18 10:28 Est GFR (Non-Af Amer) 8 11/12/18 10:28 POC Glucose (mg/dL) 103 mg/dL (65-110) 11/12/18 11:08 Random Glucose 125 mg/dL (65-105) H 11/12/18 10:28 Calcium 8.8 mg/dl (8.6-10.4) 11/12/18 10:28 Total Bilirubin 0.7 mg/dL (0.2-1.3) 11/06/18 10:19 AST 67 U/L (14-36) H 11/06/18 10:19 ALT 29 U/L (9-52) 11/06/18 10:19 Alkaline Phosphatase 144 U/L (38-126) H 11/06/18 10:19 Total Creatine Kinase 2130 U/L (30-135) H 11/06/18 10:19 Total Protein 8.4 g/dL (6.3-8.3) H 11/06/18 10:19 Albumin 4.6 g/dL (3.5-5.0) 11/06/18 10:19 Globulin 3.8 gm/dL (2.2-3.9) 11/06/18 10:19 Albumin/Globulin Ratio 1.2 (1.0-2.1) 11/06/18 10:19 - Hospital Course Hospital Course: 12.5 hgb 38.3 hct BUN 50 Creatinine 5.3 Hemodialysis as per the order Discharge planning Follow-up with the renal Patient will be discharged to rehab Family aware Patient aware s/p fall got hlep from [facility] also visted pt reports discuse diwth pt at [facility] and [facility] [place] for discharge Discharge Exam - Head Exam Head Exam: ATRAUMATIC, NORMAL INSPECTION, NORMOCEPHALIC - Eye Exam Eye Exam: EOMI, Normal appearance, PERRL Pupil Exam: NORMAL ACCOMODATION, PERRL - ENT Exam ENT Exam: Mucous Membranes Moist - Neck Exam Neck exam: Full Rom - Respiratory Exam Respiratory Exam: Chest Wall Tenderness, Decreased Breath Sounds - Cardiovascular Exam Cardiovascular Exam: REGULAR RHYTHM, +S1, +S2 - GI/Abdominal Exam GI & Abdominal Exam: Diminished Bowel Sounds, Distended, Soft - Rectal Exam Rectal Exam: Deferred - Neurological Exam Neurological exam: Oriented x3 Discharge Plan - Follow Up Plan Condition: STABLE Disposition: REHAB FACILITY/REHAB UNIT Instructions: Preventing Falls, Dialysis and Diet Referrals: Edgar Honeycutt MD [Staff Provider] -
--- NOTE | 2018-11-13 07:57 | CP.PCM.PN ---
Subjective - Date & Time of Evaluation Date of Evaluation: 11/12/18 Time of Evaluation: 10:00 - Subjective Subjective: Alert and oriented with no complaints of chest pain, SOB, or resp distress. Objective - Vital Signs/Intake and Output Vital Signs (last 24 hours): Temp Pulse Resp BP Pulse Ox 97.2 F L 74 18 113/49 L 97 11/12/18 12:35 11/12/18 12:35 11/12/18 12:35 11/12/18 12:35 11/12/18 12:35 - Labs Labs: 11/12/18 10:28 11/12/18 10:28 PT 11.8 SECONDS (9.7-12.2) 11/06/18 10: INR 1.1 11/06/18 10: APTT 35.0 SECONDS (21-34) H 11/06/18 10:19 Assessment and Plan - Assessment and Plan (Free Text) Assessment: Patient is an 88 year old female with pmhx of HTN, hyperthyroid, ESRD on HD MWF, CKD, neurology consulted for status post fall, which occurred on 11/05, as per patient, she was coming back from dialysis to home when she slipped from bed into floor and was not able to get up, patient admits to lower back pain. Pt seen and examined. Pt alert and oriented. VS stable, labs reviewed. Discharge discussed with Dr. Ai Honeycutt, patient, and family. Follow up with Dr. Ai Honeycutt in 2-3 weeks Activity as tolerated Resume all medications HD MWF Monitor Phosphorus level Weekly
== END 2018-11-12 16:43 | DRG 604 ==
LOC: C.ER 09:31 → C.9E 13:24 → C.3T 19:45 → OBSVTOIN 11-08 12:03
PROVIDERS: ADMIT Internal Medicine Nephrology; ATTEND Internal Medicine Nephrology
PROC: 5A1D70Z Performance of Urinary Filtration, Intermittent, Less than 6 Hours Per Day (ICD-10-PCS; principal; 2018-11-07)
PROC: 5A1D70Z Performance of Urinary Filtration, Intermittent, Less than 6 Hours Per Day (ICD-10-PCS; 2018-11-09)
PROC: 5A1D70Z Performance of Urinary Filtration, Intermittent, Less than 6 Hours Per Day (ICD-10-PCS; 2018-11-12)
DX: S20.229A Contusion of unspecified back wall of thorax, initial encounter (principal); N18.6 End stage renal disease; I12.0 Hypertensive chronic kidney disease with stage 5 chronic kidney disease or end stage renal disease; N25.81 Secondary hyperparathyroidism of renal origin; M62.82 Rhabdomyolysis; S81.819A Laceration without foreign body, unspecified lower leg, initial encounter; E05.90 Thyrotoxicosis, unspecified without thyrotoxic crisis or storm; M19.90 Unspecified osteoarthritis, unspecified site; M54.5 Low back pain; R26.2 Difficulty in walking, not elsewhere classified; J20.9 Acute bronchitis, unspecified; D64.9 Anemia, unspecified; E78.5 Hyperlipidemia, unspecified; W19.XXXA Unspecified fall, initial encounter; Y92.009 Unspecified place in unspecified non-institutional (private) residence as the place of occurrence of the external cause; Z99.2 Dependence on renal dialysis; Z88.0 Allergy status to penicillin